=== PATIENT | male | born 1930 | race Native Hawaiian/Other Pacific Islander ===

== ENCOUNTER 2020-03-14 00:25 | Emergency (ER) | payer MEDICAID ==
[2020-03-14] VITALS (8 sets, daily range): BP systolic 124–148; BP diastolic 65–88
[~2020-03-14] VITALS: Ht 167.6 cm; Wt 66.7 kg
[2020-03-14] MEDS ORDERED: LIPITOR80 MG ORAL (00:40)
[2020-03-14] MEDS ORDERED: MOM30 ML ORAL (00:40)
[2020-03-14] MEDS ORDERED: MELATONIN3 MG ORAL (00:40)
[2020-03-14] MEDS ORDERED: ACETAMINOPHEN120 MG RECTAL (00:40)
[2020-03-14] MEDS ORDERED: FINASTERIDE5 MG ORAL (00:40)
--- NOTE | 2020-03-14 00:41 | Emergency Room Report ---
History of Present Illness General Chief Complaint: Multiple Trauma/Fall Source: Patient Present Illness HPI Patient is a 89-year-old male brought in by basic ambulance from nursing facility. Patient had been sent in from [facility]. He had been noted to have an unwitnessed fall. Patient had sustained injury to his right upper extremity. Unclear if he lost consciousness. Denies any current complaints. Patient was noted to have positive novel coronavirus infection. patient had been at his baseline mental status. Allergies: Coded Allergies: No Known Allergies (Unverified , 03/14/20) COVID-19 Screening Contact w/high risk pt: Yes Recent Travel to affected area: No Experienced COVID-19 symptoms?: Yes COVID-19 symptoms experienced: Shortness of Breath Patient History Past Medical History: see triage record Reviewed Nursing Documentation: PMH: Agreed; PSxH: Agreed Nursing Documentation-PMH Hx Hypertension: Yes Hx Neurological Problems: Yes - dementia Review of Systems All Other Systems: negative except mentioned in HPI Physical Exam Vital Signs Date Time Temp Pulse Resp B/P (MAP) Pulse Ox O2 Delivery O2 Flow Rate FiO2 03/14/20 00:28 98.2 90 18 148/88 (108) 99 Room Air Sp02 EP Interpretation: reviewed, normal General Appearance: normal inspection, well appearing, no apparent distress, alert, GCS 15 Head: atraumatic ENT: normal ENT inspection, hearing grossly normal, normal voice Neck: normal inspection, full range of motion, supple, no bony tend Respiratory: normal inspection, lungs clear, normal breath sounds, no respiratory distress, no retraction, no wheezing Cardiovascular #1: regular rate, rhythm, no edema Gastrointestinal: normal inspection, normal bowel sounds, non tender, soft, no guarding, no hernia Genitourinary: no CVA tenderness Musculoskeletal: normal inspection, back normal, normal range of motion Neurologic: alert, motor strength/tone normal, 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 No deformity noted. Medical Decision Making Diagnostic Impression: Primary Impression: Fall Additional Impressions: Avulsion of skin of right elbow Coronavirus infection ER Course Patient presented after a fall. Differential diagnosis include was not limited to head injury, syncopal episode, among others. Because of complexity of patient's case laboratory tests and imaging studies were ordered. Patient was noted to have normal coronavirus infection on previous testing. He had been under quarantine at his facility.Patient's laboratory testing was notable for elevated d-dimer. Patient was noted to be normotensive with a adequate oxygenation on room air.Dr. Shahnaz Weathers was contacted for inpatient management. Patient be admitted for further evaluation and treatment. Labs Test 03/14/20 00:40 White Blood Count 8.1 K/UL (4.8-10.8) Red Blood Count 4.23 M/UL (4.70-6.10) Hemoglobin 12.9 G/DL (14.2-18.0) Hematocrit 38.2 % (42.0-52.0) Mean Corpuscular Volume 90 FL (80-99) Mean Corpuscular Hemoglobin 30.6 PG (27.0-31.0) Mean Corpuscular Hemoglobin Concent 33.9 G/DL (32.0-36.0) Red Cell Distribution Width 11.4 % (11.6-14.8) Platelet Count 120 K/UL (150-450) Mean Platelet Volume 8.5 FL (6.5-10.1) Neutrophils (%) (Auto) 57.8 % (45.0-75.0) Lymphocytes (%) (Auto) 27.3 % (20.0-45.0) Monocytes (%) (Auto) 12.5 % (1.0-10.0) Eosinophils (%) (Auto) 0.8 % (0.0-3.0) Basophils (%) (Auto) 1.7 % (0.0-2.0) D-Dimer 2.30 mg/L FEU (0.00-0.49) Urine Color Pale yellow Urine Appearance Clear Urine pH 7 (4.5-8.0) Urine Specific [place] 1.010 (1.005-1.035) Urine Protein Negative (NEGATIVE) Urine Glucose (UA) Negative (NEGATIVE) Urine Ketones Negative (NEGATIVE) Urine Blood 3+ (NEGATIVE) Urine Nitrite Negative (NEGATIVE) Urine Bilirubin Negative (NEGATIVE) Urine Urobilinogen Normal MG/DL (0.0-1.0) Urine Leukocyte Esterase Negative (NEGATIVE) Urine RBC 2-4 /HPF (0 - 0) Urine WBC 0 /HPF (0 - 0) Urine Squamous Epithelial Cells Few /LPF (NONE/OCC) Urine Bacteria None /HPF (NONE) Sodium Level 141 MMOL/L (136-145) Potassium Level 4.0 MMOL/L (3.5-5.1) Chloride Level 106 MMOL/L (98-107) Carbon Dioxide Level 29 MMOL/L (21-32) Anion Gap 6 mmol/L (5-15) Blood Urea Nitrogen 17 mg/dL (7-18) Creatinine 1.3 MG/DL (0.55-1.30) Estimat Glomerular Filtration Rate 52.0 mL/min (>60) Glucose Level 118 MG/DL (74-106) Calcium Level 9.1 MG/DL (8.5-10.1) Total Bilirubin 0.3 MG/DL (0.2-1.0) Aspartate Amino Transf (AST/SGOT) 37 U/L (15-37) Alanine Aminotransferase (ALT/SGPT) 33 U/L (12-78) Alkaline Phosphatase 108 U/L (46-116) Troponin I 0.011 ng/mL (0.000-0.056) C-Reactive Protein, Quantitative 1.4 mg/dL (0.00-0.90) Total Protein 7.9 G/DL (6.4-8.2) Albumin 3.3 G/DL (3.4-5.0) Globulin 4.6 g/dL Albumin/Globulin Ratio 0.7 (1.0-2.7) EKG Diagnostic Results Rate: normal Rhythm: NSR ST Segments: no acute changes Last Vital Signs Date Time Temp Pulse Resp B/P (MAP) Pulse Ox O2 Delivery O2 Flow Rate FiO2 03/14/20 00:28 98.2 90 18 148/88 (108) 99 Room Air Status: unchanged Disposition: ADMITTED INPATIENT Condition: Stable Maxime Stanley MD Mar 14, 2020 00:41
[2020-03-14] MEDS ORDERED: Acetaminophen 500mg (ES) tab ORAL ONE (00:45)
--- NOTE | 2020-03-14 00:45 | NUR ---
ED Nurse Note: BROUGHT BY [facility] [facility] FROM [facility] C/O UNWITNESSED FALL. PT PRESENTS WITH ABRASION ON RIGHT ELBOW OTHERWISE SKIN INTACT. DENIES PAIN. PT POSITIVE COVID 03/02/20. AO1; EPISODES OF CONFUSION; PRESENTS WITH PURPOSEFUL MOVEMENT. NAD. CHANGED INTO GOWN AND ATTACHED TO MONITOR. VSS. EKG DONE AT BEDSIDE NSR. DROPLET AND FALL PRECAUTION OBSERVED. SAFETY MEASURES MET; SIDE RAILS RAISED; BED LOCKED AT LOWEST POSITION. WILL MONITOR CLOSELY.
--- NOTE | 2020-03-14 01:30 | NUR ---
ED Nurse Note: IV ACCESS ESTABLISHED. BLOOD, URINE, MRSAVRECRE SWAB COLLECTED; SENT DOWN TO LAB. MEDICATION ADMINISTERED ORDERED; PATIENT TOLERATED WELL. WILL CONTINUE TO MONITOR. ALL SAFETY MEASURES MET.
--- NOTE | 2020-03-14 01:37 | NUR ---
patient's , carmen [phone]
[2020-03-14 01:48] LABS: APPEARANCE,URINE CLEAR; BILIRUBIN, URINE NEGATIVE (NEGATIVE); COLOR,URINE PALE YELLOW; GLUCOSE, URINE (UA) NEGATIVE (NEGATIVE); KETONES,URINE NEGATIVE (NEGATIVE); LEUKOCYTE ESTERASE ,URINE NEGATIVE (NEGATIVE); NITRITE,URINE NEGATIVE (NEGATIVE); PH,URINE 7 (4.5-8.0); PROTEIN,URINE NEGATIVE (NEGATIVE); UROBILINOGEN,URINE NORMAL MG/DL (0.0-1.0)
[2020-03-14 01:51] LABS: BASOPHILS % (AUTO) 1.7 % (0.0-2.0); EOSINOPHILS % (AUTO) 0.8 % (0.0-3.0); HEMATOCRIT 38.2 % (42.0-52.0); HEMOGLOBIN 12.9 G/DL (14.2-18.0); LYMPHOCYTES % (AUTO) 27.3 % (20.0-45.0); MEAN CORPUSCULAR VOLUME 90 FL (80-99); MONOCYTES % (AUTO) 12.5 % (1.0-10.0); NEUTROPHILS % (AUTO) 57.8 % (45.0-75.0); PLATELET COUNT 120 K/UL (150-450); RED BLOOD COUNT 4.23 M/UL (4.70-6.10); RED CELL DISTRIBUTION WIDTH 11.4 % (11.6-14.8); WHITE BLOOD COUNT 8.1 K/UL (4.8-10.8)
[2020-03-14 01:59] LABS: ANION GAP 6 mmol/L (5-15); BLOOD UREA NITROGEN 17 mg/dL (7-18); CALCIUM 9.1 MG/DL (8.5-10.1); CARBON DIOXIDE 29 MMOL/L (21-32); CHLORIDE 106 MMOL/L (98-107); CREATININE 1.3 MG/DL (0.55-1.30); SODIUM 141 MMOL/L (136-145)
--- NOTE | 2020-03-14 02:00 | NUR ---
ED Nurse Note: PT DOWN TO CT WITH MANAGER BUSINESS.
[2020-03-14 02:04] LABS: ALANINE AMINOTRANSFERASE 33 U/L (12-78); ALBUMIN 3.3 G/DL (3.4-5.0); ALBUMIN/GLOBULIN RATIO 0.7 (1.0-2.7); ALKALINE PHOSPHATASE 108 U/L (46-116); ASPARTATE AMINO TRANSFERASE 37 U/L (15-37); BILIRUBIN,TOTAL 0.3 MG/DL (0.2-1.0)
--- NOTE | 2020-03-14 02:20 | NUR ---
ED Nurse Note: PT BACK FROM CT. REATTACHED TO MONITOR. VSS. NAD.
--- NOTE | 2020-03-14 02:47 | Diagnostic Imaging Report ---
EXAM: CT Head Without Intravenous Contrast CLINICAL HISTORY: PAIN TECHNIQUE: Axial computed tomography images of the head/brain without intravenous contrast. CTDI is 53.4 mGy and DLP is 1125.7 mGy-cm. One or more of the following dose reduction techniques were used: automated exposure control, adjustment of the mA and/or kV according to patient size, use of iterative reconstruction technique. COMPARISON: None. FINDINGS: Brain: Moderate generalized brain atrophy. Decreased attenuation within the deep white matter compatible with microangiopathic white matter disease. No hemorrhage. Ventricles: Unremarkable. No ventriculomegaly. Bones/joints: Unremarkable. No acute fracture. Soft tissues: Unremarkable. Sinuses: Unremarkable as visualized. No acute sinusitis. Mastoid air cells: Unremarkable as visualized. No mastoid effusion. IMPRESSION: 1. Chronic changes as described. 2. No acute intracranial hemorrhage or space-occupying lesion.
--- NOTE | 2020-03-14 03:30 | NUR ---
ED Nurse Note: patient noted attempting to get out of bed. pulled out iv. patient ao1 restless and increasing confusion. provided diversional activities, assisted in voiding, provided nourishment and decreased environmental stimuli. patient back in bed; reattached monitor. will continue to monitor closely.
--- NOTE | 2020-03-14 04:28 | NUR ---
ED Nurse Note: left message for salina win for admitting orders; awaiting callback.
[2020-03-14] MEDS ORDERED: LORazepam Inj 2mg/ml 1ml IV ONE (04:30)
--- NOTE | 2020-03-14 04:30 | NUR ---
ED Nurse Note: patient increasingly aggitated. received new order from [facility]; noted and carried out.
[2020-03-14] MEDS ORDERED: LORazepam Inj 2mg/ml 1ml ONE (04:32)
--- NOTE | 2020-03-14 05:30 | NUR ---
ED Nurse Note: patient calm and cooperative; drowsy. established iv access. will continue to monitor.
--- NOTE | 2020-03-14 06:00 | NUR ---
ED Nurse Note: patient asleep in bed with no acute distress. drowsy; arousable to name. vitals remain stable to baseline.
--- NOTE | 2020-03-14 07:15 | NUR ---
HAND-OFF: Report given to LIZBETH ELAINE. PATIENT IN STABLE CONDITION. ENDORSED PENDING ADMISSION AND HIGH FALL RISK.
--- NOTE | 2020-03-14 08:50 | NUR ---
ED Nurse Note: Maxime called [facility] and notified them of pt coming [facility] facility per Dr Reich.
--- NOTE | 2020-03-14 08:57 | Diagnostic Imaging Report ---
Indication: Cough Technique: XRAY Chest 1v Comparison: None Findings: Heart size and mediastinal contours are within normal limits for AP technique. There are atherosclerotic calcifications in the aorta. There is no focal airspace consolidation. No pleural effusion, pneumothorax or radiographic evidence suggest pulmonary edema. There are degenerative changes in the spine. No acute osseous abnormality. Impression: No focal airspace consolidation, pleural effusion or pneumothorax. Atherosclerotic disease. Degenerative changes in the spine.
--- NOTE | 2020-03-14 08:59 | Diagnostic Imaging Report ---
Indication: Elbow pain status post injury Technique: 4 views of the right elbow Comparison: None Findings: Exam limited due to suboptimal positioning. Within these limitations: Bone mineralization within normal limits. No definite/displaced acute fracture is identified. No joint is maintained, without evidence of dislocation. No appreciable elbow joint effusion. No retained radiopaque foreign body. IMPRESSION: No radiographically appreciable acute fracture. No elbow joint effusion.
--- NOTE | 2020-03-14 11:24 | NUR ---
DISCHARGED BACK TO [facility]
--- NOTE | 2020-03-14 11:25 | NUR ---
report given to rn in station one . copies of all the reports send with patient
== END 2020-03-14 11:45 ==
LOC: EDBD 00:25 → EMR 00:55 → CANBEDREQ 08:56 → EMR 11:45
DX: S51.001A Unspecified open wound of right elbow, initial encounter (principal); U07.1 COVID-19; W19.XXXA Unspecified fall, initial encounter; Y92.9 Unspecified place or not applicable; I10 Essential (primary) hypertension; F03.90 Unspecified dementia, unspecified severity, without behavioral disturbance, psychotic disturbance, mood disturbance, and anxiety; R06.02 Shortness of breath
CPT/HCPCS: 36415; 70450; 71045; 73070; 80053; 81003; 84484; 85025; 85379; 86140; 87081; 93005; 96374; J7040; Z7502; 99284